=== PATIENT | male | born 1960 | race Caucasian/White ===

== ENCOUNTER 2020-05-18 16:04 | Outpatient (CLI) | payer BC ==
--- NOTE | 2020-05-18 17:38 | RAD ---
RIGHT SHOULDER THREE VIEWS: 05/18/20 No fracture, dislocation, or AC joint widening was seen. The visible adjacent ribs appeared intact. T here does appear to be some cervical arthritic change on the right side in the low cervical region. IMPRESSION: No acute finding. POS: HOME
--- NOTE | 2020-05-18 17:45 | RAD ---
LUMBAR SPINE THREE VIEWS: 05/18/20 No acute fracture was seen. Mild wedging of T12 is probably longstanding. There is disc space narrowi ng at L5-S1, but the other disc spaces appear normal. Faint calcification is seen in the aortic arch. The SI joints are symmetrical. Considerable amount of foot stuff is seen in the stomach, as well as abundant stool in the colon. IMPRESSION: No acute lumbar findings. Mild disc space narrowing at L5-S1. POS: HOME
== END 2020-05-18 16:05 | disposition home or self-care (01) ==
LOC: BURRAD 16:04
PROVIDERS: ATTEND Family Medicine
DX: M25.511 Pain in right shoulder (principal); M54.5 Low back pain; M48.07 Spinal stenosis, lumbosacral region
CPT/HCPCS: 72100